=== PATIENT | female | born 1955 | race Caucasian/White ===

== ENCOUNTER 2018-11-25 05:23 | Emergency (ER) | payer MEDICAID ==
[2018-11-25 05:23] VITALS: BMI 31.1
[2018-11-25 05:44] VITALS: PULSE 96; RESP 20; TEMP 98.4; O2SAT 99
[2018-11-25] MEDS ORDERED: Metoprolol Succinate 50 mg XL Tab PO STA (07:45)
[2018-11-25] MEDS ORDERED: NIFEdipine 60 mg ER Tab PO STA (07:46)
--- NOTE | 2018-11-25 07:52 | C.PDOC ---
History Of Present Illness 63 year old female presents to the ED complaining of pain and swelling from the left shoulder down to the left hand, since yesterday morning. Denies recent fall or blunt trauma. She admits to having similar episodes of shoulder pain in the past. Pain is worse with movement. Patient also reports a PMHx of diabetes (on metformin) and hypertension, last took her blood pressure medications 3 days ago (Metoprolol 50 mg and Procardia 60 mg). She denies any trauma, chest pain, SOB, coughing, fever, chills, or recent drug or alcohol use. Patient reports 1 episode of vomiting yesterday morning, none today. Time Seen by Provider: 11/25/18 07:20 Chief Complaint (Nursing): Pain, Chronic History Per: Patient History/Exam Limitations: no limitations Onset/Duration Of Symptoms: Days Current Symptoms Are (Timing): Still Present Past Medical History Reviewed: Historical Data, Nursing Documentation, Vital Signs Vital Signs: Last Vital Signs Temp 98.4 F 11/25/18 05:34 Pulse 96 H 11/25/18 05:34 Resp 20 11/25/18 05:34 BP 220/136 H 11/25/18 05:34 Pulse Ox 99 11/25/18 05:34 - Medical History PMH: HTN Family History: States: Unknown Family Hx - Social History Hx Alcohol Use: No Hx Substance Use: No Review Of Systems Except As Marked, All Systems Reviewed And Found Negative. Constitutional: Negative for: Fever, Chills Cardiovascular: Negative for: Chest Pain, Palpitations Respiratory: Negative for: Cough, Shortness of Breath Gastrointestinal: Negative for: Vomiting (1 episode yesterday), Abdominal Pain, Diarrhea Musculoskeletal: Positive for: Arm Pain (left shoulder down to the hand) Skin: Negative for: Rash, Lesions Neurological: Negative for: Weakness, Numbness Physical Exam - Physical Exam Appears: Non-toxic, No Acute Distress Head: Atraumatic, Normacephalic Eye(s): bilateral: Normal Inspection, PERRL, EOMI Oral Mucosa: Moist Neck: Normal ROM Chest: Symmetrical, No Tenderness Cardiovascular: Rhythm Regular, No Murmur Respiratory: Normal Breath Sounds, No Rales, No Rhonchi, No Wheezing Gastrointestinal/Abdominal: Bowel Sounds, Soft, No Tenderness, No Distention Extremity: Tenderness (Non-focal tenderness from the left anterior shoulder down to the left wrist/hand), No Pedal Edema, Capillary Refill (< 2 sec), Swelling (to the left wrist and hand, with + blanching erythema but no increased warmth), Other (Decreased ROM secondary to pain) Pulses: Left Radial: Normal, Right Radial: Normal Neurological/Psych: Oriented x3, Normal Motor, Normal Sensation ED Course And Treatment - Laboratory Results Result Diagrams: 11/25/18 08:06 11/25/18 08:06 O2 Sat by Pulse Oximetry: 99 (RA) Pulse Ox Interpretation: Normal - Other Rad L shoulder XR X-Ray: Read By Radiologist Interpretation: Patient Name / ID : CAROL THRASHER / [id number]. Exam Date : 11/25/2018 09:42:06 ( Approved ). Study Comment : Sex / Age : F / 63Y. Creator : Rashaad Moody MD. Dictator : Rashaad Moody MD. Marketing Researcher : Tree Topper : Rashaad Moody MD. Approver2 : Report Date : 11/25/2018 11:14:03. My Comment : . Date of service: 11/25/2018. PROCEDURE: Radiographs of the Left Shoulder. HISTORY: pain. COMPARISON: No prior. FINDINGS: BONES: No acute cardiopulmonary disease appreciated. JOINTS: No subluxation or dislocation apparent. Degenerative changes are moderate at both the acr omioclavicular and glenohumeral joints. SOFT TISSUES: Normal. OTHER FINDINGS: None. IMPRESSION: Degenerative acromioclavicular and glenohumeral joint changes. No acute fracture or dislocation. L elbow XR X-Ray: Read By Radiologist Interpretation: Accession No. : [id number]. Patient Name / ID : CAROL THRASHER / [id number]. Exam Date : 11/25/2018 09:30:35 ( Approved ). Study Comment : Sex / Age : F / 63Y. Creator : Rashaad Moody MD. Dictator : Rashaad Moody MD. Marketing Researcher : Tree Topper : Rashaad Moody MD. Approver2 : Report Date : 11/25/2018 11:16:12. My Comment : . Date of service: 11/25/2018. PROCEDURE: Radiographs of the left elbow. HISTORY: pain/swelling. COMPARISON: No prior. FINDINGS: BONES: No acute fracture or destructive bony lesion identified. JOINTS: No subluxation or dislocation. Cortical sclerosis is appreciated at the articulations of the left elbow including humeral ulnar and humeral radial joints. SOFT TISSUES: Normal. JOINT EFFUSION: None. OTHER FINDINGS: None. IMPRESSION: No acute fracture dislocation left elbow. Degenerative changes are [id number] at the left elbow joint articulations. L wrist XR X-Ray: Read By Radiologist Interpretation: Accession No. : [id number]. Patient Name / ID : CAROL THRASHER / [id number]. Exam Date : 11/25/2018 09:26:18 ( Approved ). Study Comment : Sex / Age : F / 63Y. Creator : Rashaad Moody MD. Dictator : Rashaad Moody MD. Marketing Researcher : Tree Topper : Rashaad Moody MD. Approver2 : Report Date : 11/25/2018 11:16:56. My Comment : . Date of service: 11/25/2018. PROCEDURE: Left Wrist Radiographs. . HISTORY: pain. COMPARISON: None. FINDINGS: BONES: No acute fracture or destructive bony lesion identified. Navicular bone appears unremarkable grossly. JOINTS: Normal. No dislocation. SOFT TISSUES: Normal. OTHER FINDINGS: None. IMPRESSION: No acute fracture or dislocation left wrist including the navicular bone. L hand XR X-Ray: Read By Radiologist Interpretation: Accession No. : [id number]. Patient Name / ID : CAROL Pal [id number]. Exam Date : 11/25/2018 09:21:43 ( Approved ). Study Comment : Sex / Age : F / 63Y. Creator : Rashaad oMody MD. Dictator : Rashaad Moody MD. Marketing Researcher : Tree Topper : Rashaad Moody MD. Approver2 : Report Date : 11/25/2018 11:23:07. My Comment : . PROCEDURE: Left Hand Radiographs. HISTORY: pain/swelling. COMPARISON: None. FINDINGS: BONES: No acute fracture or destructive bony lesion identified. JOINTS: Degenerative cortical sclerosis appreciated at the interphalangeal joints mildly as well as the basal joint at the wrist. No subluxation or dislocation evident. SOFT TISSUES: Heterotopic calcification is identified at the medial soft tissue relative to the 2nd metacarpal phalangeal joint and lateral soft tissues relative to the 3rd MTP joint. Similar calcifications lateral to the 2nd proximal interphalangeal joint as well, likely post inflammatory/degenerative. OTHER FINDINGS: None. IMPRESSION: No acute fracture dislocation. Degenerative joint disease is seen at the basal joint and interphalangeal joints of the left hand. Likely degenerative heterotopic calcifications are identified in soft tissues related to the 2nd and 3rd MCP joints and index finger PIP joint. Chest XR X-Ray: Read By Radiologist Interpretation: Accession No. : [id number]. Patient Name / ID : CAROL Pal [id number]. Exam Date : 11/25/2018 09:16:59 ( Approved ). Study Comment : Sex / Age : F / 63Y. Creator : Rashaad Moody MD. Dictator : Rashaad Moody MD. Marketing Researcher : Tree Topper : Rashaad Moody MD. Approver2 : Report Date : 11/25/2018 11:33:13. My Comment : . Date of service: 11/25/2018. HISTORY: chest pain. COMPARISON: No prior. TECHNIQUE: Chest PA and lateral. FINDINGS: LUNGS: No consolidation bilaterally. Borderline increased reticular markings versus accentuation by somewhat obese body habitus. Clinically correlate further. PLEURA: No significant pleural effusion identified. No pneumothorax apparent. CARDIOVASCULAR: No aortic atherosclerotic calcification present. Cardiomegaly suspected. Frontal technique limits evaluation. No pulmonary vascular congestion nevertheless. OSSEOUS STRUCTURES: No significant abnormalities. VISUALIZED UPPER ABDOMEN: Normal. OTHER FINDINGS: None. IMPRESSION: Cardiomegaly question. No pulmonary vascular congestion. Reticular markings are questionably increased bilaterally this could be a function of accentuation by obese body habitus. Clinically correlate. No consolidation, pleural effusion or pneumothorax bilaterally. Medical Decision Making Medical Decision Making: Impression: Uncontrolled Hypertension, Chronic Pain Plan: - Labs - EKG - Chest x-ray - Left hand x-ray - Left wrist x-ray - Left elbow x-ray - Left shoulder x-ray - Metoprolol 50 mg PO - Procardia 60 mg PO - Morphine 2 mg IM - Pending doppler US of PENELOPE Progress/Updates: EKG: NSR @ 89 bpm, normal intervals, normal axis, LVH with repolarization abnormality Labs reviewed. Imaging reviewed, x-rays show DJD but no acute findings. Doppler study shows no abnormal findings. All results discussed with patient. RN translated to ensure understanding. Patient is complaining of persistent pain. Will give PO Tylenol and Tramadol in the ED. On re-evaluation patient is in no acute distress. Repeat vitals demonstrate improvement in blood pressure to 181/92. Plan is to d/c patient home with prescription for pain medication as well as blood pressure meds. Patient instructed to keep arm elevated to minimize swelling. Advised to follow up with PMD or the clinic in 1-2 days. Disposition Counseled Patient/Family Regarding: Studies Performed, Diagnosis, Need For Followup - Disposition Referrals: [facility] [Outside] [facility] [Outside] Disposition: HOME/ ROUTINE Disposition Time: 12:18 Condition: IMPROVED Prescriptions: Ibuprofen [Motrin Tab] 800 mg PO TID PRN #30 tab PRN Reason: Pain, Moderate (4-7) metFORMIN [glucOPHAGE] 500 mg PO BID #60 tab Metoprolol Succinate XL [Toprol XL] 50 mg PO DAILY #30 tab NIFEdipine ER [Procardia XL] 60 mg PO DAILY #30 ter Valsartan [Diovan] 160 mg PO DAILY #30 tab Instructions: High Blood Pressure (DC), Osteoarthritis (DC), Hyperglycemia, Adult (DC) Forms: [employer] [facility] (Frisian), Gen Discharge Inst Frisian Print Language: STATELESS - Clinical Impression Clinical Impression: Noncompliance with medication regimen, Hypertension, Hyperglycemia, DJD (degenerative joint disease), Medication refill - Scribe Statement The provider has reviewed the documentation as recorded by the Haleigh Solorio Provider Attestation: All medical record entries made by the Haleigh were at my direction and personally dictated by me. I have reviewed the chart and agree that the record accurately reflects my personal performance of the history, physical exam, medical decision making, and the department course for this patient. I have also personally directed, reviewed, and agree with the discharge instructions and disposition.
[2018-11-25 08:10] LABS: BASO % 0.3 % (0.0-2.0); EOS % 0.1 % (0.0-4.0); LYMPH # 1.3 K/uL (1.0-4.3); LYMPH % 12.5 % (20.0-40.0); MEAN CELL VOLUME 86.1 fL (81.0-99.0); MEAN CORPUSCULAR HEMOGLOBIN 29.2 pg (27.0-31.0); MEAN CORPUSCULAR HGB CONC 33.9 g/dL (33.0-37.0); MEAN PLATELET VOLUME 9.4 fL (7.2-11.7); MONO # 0.5 K/uL (0.0-0.8); MONO % 4.4 % (0.0-10.0); NEUT # 8.9 K/uL (1.8-7.0); NEUT % 82.7 % (50.0-75.0); RBC 5.29 Mil/uL (3.80-5.20); WHITE BLOOD COUNT 10.8 K/uL (4.8-10.8)
[2018-11-25 08:19] LABS: HEMOGLOBIN 15.4 g/dL (11.0-16.0)
[2018-11-25] MEDS ORDERED: Morphine 4 MG/ML VIAL ONE (08:19)
[2018-11-25 08:23] LABS: ALB/GLOB RATIO 1.1 (1.0-2.1); ALBUMIN 4.7 g/dL (3.5-5.0); ALT/SGPT 23 U/L (9-52); AST/SGOT 26 U/L (14-36); BLOOD UREA NITROGEN 14 mg/dL (7-17); CALCIUM 9.5 mg/dl (8.6-10.4); GFR NON-AFRICAN AMERICAN > 60
[2018-11-25 08:37] LABS: B-TYPE NATRIURETIC PEPTIDE 598 pg/mL (0-900)
[2018-11-25 09:10] LABS: BARBITURATES, UR NEGATIVE (NEGATIVE); BENZODIAZEPINES, UR NEGATIVE (NEGATIVE); OPIATES, UR NEGATIVE (NEGATIVE); PHENCYCLIDINE, UR NEGATIVE (NEGATIVE)
--- NOTE | 2018-11-25 11:17 | RAD ---
Date of service: 11/25/2018 PROCEDURE: Radiographs of the Left Shoulder HISTORY: pain COMPARISON: No prior. FINDINGS: BONES: No acute cardiopulmonary disease appreciated. JOINTS: No subluxation or dislocation apparent. Degenerative changes are moderate at both the acromioclavicular and glenohumeral joints. SOFT TISSUES: Normal. OTHER FINDINGS: None. IMPRESSION: Degenerative acromioclavicular and glenohumeral joint changes. No acute fracture or dislocation.
--- NOTE | 2018-11-25 11:19 | RAD ---
Date of service: 11/25/2018 PROCEDURE: Radiographs of the left elbow. HISTORY: pain/swelling COMPARISON: No prior. FINDINGS: BONES: No acute fracture or destructive bony lesion identified. JOINTS: No subluxation or dislocation. Cortical sclerosis is appreciated at the articulations of the left elbow including humeral ulnar and humeral radial joints. SOFT TISSUES: Normal. JOINT EFFUSION: None. OTHER FINDINGS: None IMPRESSION: No acute fracture dislocation left elbow. Degenerative changes are [id number] at the left elbow joint articulations.
--- NOTE | 2018-11-25 11:20 | RAD ---
Date of service: 11/25/2018 PROCEDURE: Left Wrist Radiographs. HISTORY: pain COMPARISON: None. FINDINGS: BONES: No acute fracture or destructive bony lesion identified. Navicular bone appears unremarkable grossly. JOINTS: Normal. No dislocation. SOFT TISSUES: Normal. OTHER FINDINGS: None. IMPRESSION: No acute fracture or dislocation left wrist including the navicular bone.
--- NOTE | 2018-11-25 11:26 | RAD ---
PROCEDURE: Left Hand Radiographs. HISTORY: pain/swelling COMPARISON: None. FINDINGS: BONES: No acute fracture or destructive bony lesion identified. JOINTS: Degenerative cortical sclerosis appreciated at the interphalangeal joints mildly as well as the basal joint at the wrist. No subluxation or dislocation evident. SOFT TISSUES: Heterotopic calcification is identified at the medial soft tissue relative to the 2nd metacarpal phalangeal joint and lateral soft tissues relative to the 3rd MTP joint. Similar calcifications lateral to the 2nd proximal interphalangeal joint as well, likely post inflammatory/degenerative. OTHER FINDINGS: None. IMPRESSION: No acute fracture dislocation. Degenerative joint disease is seen at the basal joint and interphalangeal joints of the left hand. Likely degenerative heterotopic calcifications are identified in soft tissues related to the 2nd and 3rd MCP joints and index finger PIP joint.
--- NOTE | 2018-11-25 11:36 | RAD ---
Date of service: 11/25/2018 HISTORY: chest pain COMPARISON: No prior. TECHNIQUE: Chest PA and lateral FINDINGS: LUNGS: No consolidation bilaterally. Borderline increased reticular markings versus accentuation by somewhat obese body habitus. Clinically correlate further. PLEURA: No significant pleural effusion identified. No pneumothorax apparent. CARDIOVASCULAR: No aortic atherosclerotic calcification present. Cardiomegaly suspected. Frontal technique limits evaluation. No pulmonary vascular congestion nevertheless. OSSEOUS STRUCTURES: No significant abnormalities. VISUALIZED UPPER ABDOMEN: Normal. OTHER FINDINGS: None. IMPRESSION: Cardiomegaly question. No pulmonary vascular congestion. Reticular markings are questionably increased bilaterally this could be a function of accentuation by obese body habitus. Clinically correlate. No consolidation, pleural effusion or pneumothorax bilaterally.
[2018-11-25 12:18] VITALS: BP 176/112
--- NOTE | 2018-11-25 13:51 | VASCLAB ---
Date of service: 11/25/2018 PROCEDURE: Left Upper Extremity Venous Duplex Exam HISTORY: swelling/pain PRIORS: None. TECHNIQUE: Left upper extremity, internal jugular, subclavian, axillary, brachial, ulnar, radial, basilic and upper cephalic veins were evaluated. Flow was assessed with color Doppler, compressibility, assessment of phasic flow and augmentation response. Report prepared by RON Tolliver FINDINGS: LEFT: 1. Internal Jugular: 1.1. Compressibility - Fully compressible: Thrombus - None : Flow - Phasic: Augmentation -Normal: Reflux - None. 2. Subclavian: 2.1. Compressibility - Fully compressible: Thrombus - None : Flow - Phasic: Augmentation -Normal: Reflux - None. 3. Axillary: 3.1. Compressibility - Fully compressible: Thrombus - None : Flow - Phasic: Augmentation -Normal: Reflux - None. 4. Brachial: 4.1. Compressibility - Fully compressible: Thrombus - None: Flow - Phasic: Augmentation -Normal: Reflux - None. 5. Ulnar: 5.1. Compressibility - Fully compressible: Thrombus - None: Flow - Phasic: Augmentation -Normal: Reflux - None. 6. Radial: 6.1. Compressibility - Fully compressible: Thrombus - None: Flow - Phasic: Augmentation - Normal: Reflux - None. 7. Cephalic: 7.1. Compressibility - Fully compressible: Thrombus - None: Flow - Phasic: Augmentation -Normal: Reflux - None. 8. Basilic: 8.1. Compressibility - Fully compressible: Thrombus - None: Flow - Phasic: Augmentation -Normal: Reflux - None. OTHER FINDINGS: Left: None. IMPRESSION: Left: No evidence of vein thrombosis of the left upper extremity with excellent venous flow. Normal valve function noted of the left side. Normal venous flow noted in the right internal jugular and right subclavian veins.
--- NOTE | 2018-11-27 15:53 | CARD ---
APPROVED REPORT Date of service: 11/25/2018 EKG Measurement Heart [id number] PA [id number] <Conclusion> Normal sinus rhythm Left ventricular hypertrophy with repolarization abnormality Prolonged QT Abnormal ECG
== END 2018-11-25 12:34 | disposition home or self-care (01) ==
LOC: C.ER 05:23
DX: M19.90 Unspecified osteoarthritis, unspecified site (principal); I10 Essential (primary) hypertension; E11.65 Type 2 diabetes mellitus with hyperglycemia; Z79.84 Long term (current) use of oral hypoglycemic drugs; Z91.14 Patient's other noncompliance with medication regimen; Z76.0 Encounter for issue of repeat prescription
CPT/HCPCS: 71046; 73030; 73080; 73110; 73130; 80053; 80324; 80345; 80346; 80349; 80353; 80358; 80361; 83880; 83992; 84484; 85025; 93005; 93971; 96374; 96375; 99285; J1885; J2270